=== PATIENT | male | born 1935 | race Caucasian/White ===

== ENCOUNTER 2018-01-01 00:45 | Emergency (ER) | payer MEDICARE, SELFPAY ==
[2018-01-01 00:46] VITALS: BP 135/70; PULSE 86; RESP 20; TEMP 36.6; O2SAT 95; BMI 34.9
--- NOTE | 2018-01-01 00:52 | XR_ITS ---
XR pelvis 1-2V HISTORY: Fall with injury and pain ITS.REASON: FALL ORDERING PHYSICIAN: Jatinder Chance MD PATIENT AGE: 82 years COMPARISON: None FINDINGS: No obvious fracture or dislocation. Mild osteoarthritic changes of the hips. Scattered clips are present in the pelvis and there is diffuse vascular calcification. IMPRESSION: Osteoarthritis of the hips, no acute finding
--- NOTE | 2018-01-01 00:52 | CT_ITS ---
CT head/brain wo con HISTORY: Headache, pain, contusion with swelling and laceration on back of head following injury/fall ITS.REASON: FALL ORDERING PHYSICIAN: Jatinder Chance MD PATIENT AGE: 82 years COMPARISON: None TECHNIQUE: Axial images obtained without contrast. Brain and bone windows reviewed. All CT scans at the facility use one or more dose reduction, viz: automated exposure control; ma/kV adjustment per patient size (including targeted exams where dose is matched to indication; i.e. head); or iterative reconstruction technique. FINDINGS: There is moderate generalized atrophy with periventricular microangiopathic changes. No midline shift, mass effect, intracranial hemorrhage apparent. The ventricles are somewhat prominent in keeping with patient's volume loss of the brain. There is a defect involving the right parietal bone consistent with an old radha hole and also 1 in the right parietofrontal junction Moderate opacification noted involving the ethmoid sinuses left greater than right with mild mucosal thickening of the sphenoid sinus. No acute calvarial fracture. IMPRESSION: 1. No acute intracranial finding 2. Atrophy with chronic ischemic gliotic change 3. 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
--- NOTE | 2018-01-01 00:52 | XR_ITS ---
XR chest AP HISTORY: Posttraumatic pain ITS.REASON: FALL ORDERING PHYSICIAN: Jatinder Chance MD PATIENT AGE: 82 years COMPARISON: 06/22/2013 FINDINGS: Unremarkable cardiovascular structures. There is chronic coarsening of the bronchovascular markings with scattered areas of scarring. No evidence of pneumothorax, contusion, or lobar consolidation. There is some faint nodular opacity in right upper lobe laterally which in part may be related to fibrotic changes. Cannot exclude developing nodule. No acute bony anomalies. IMPRESSION: Chronic changes, with possible developing nodule versus progressive fibrotic change in the right upper lobe. No acute finding.
--- NOTE | 2018-01-01 02:00 | PC.NURSE ---
MD AT BEDSIDE TO STAPLE HEAD LACERATION.
--- NOTE | 2018-01-01 03:23 | PC.NURSE ---
REPORT TO UBALDO, RECEIVING RN AT [facility].
[2018-01-01 04:32] VITALS: BP 134/67; PULSE 70; RESP 20; TEMP 37.1; O2SAT 98
== END 2018-01-01 03:25 ==
PROVIDERS: Emergency Provider Emergency Medicine; Family Provider Family Medicine
DX: S01.01XA Laceration without foreign body of scalp, initial encounter (principal); I10 Essential (primary) hypertension; F41.8 Other specified anxiety disorders; F02.80 Dementia in other diseases classified elsewhere, unspecified severity, without behavioral disturbance, psychotic disturbance, mood disturbance, and anxiety; W01.0XXA Fall on same level from slipping, tripping and stumbling without subsequent striking against object, initial encounter; Y92.129 Unspecified place in nursing home as the place of occurrence of the external cause
CPT/HCPCS: 12001; 70450; 71045; 72170; 96372; 99281

== ENCOUNTER → 2018-03-22 13:29 | Outpatient (REF) | payer MEDICARE, SELFPAY ==
[2018-03-22 13:32] LABS: Microscopic, Urine URINE MICROSCOPIC (MICROSCOPIC)
[2018-03-22 14:15] LABS: Appearance,Urine TURBID (Clear); Bilirubin,Urine Negative (Negative); Blood, Urine Negative (Negative); Color,Urine YELLOW (Yellow); Glucose,Urine (UA) Negative (Negative); Ketones,Urine Negative (Negative); Leukocyte Esterase,Urine Negative (Negative); Nitrate,Urine Negative (Negative); Protein,Urine TRACE (Negative); Urobilinogen,Urine 0.2 EU/dl (0.2)
[2018-03-22 14:19] LABS: Bacteria,Urine 4+ /lpf; WBC,Urine Occasional #/hpf (0-3)
[2018-03-22 14:20] LABS: Squamous Epithelial Cell,Urine Occasional #/hpf (0-5)
== END ==
LOC: LAB 13:29
PROVIDERS: Visit Provider Internal Medicine Adolescent Medicine
DX: E11.9 Type 2 diabetes mellitus without complications (principal); E55.9 Vitamin D deficiency, unspecified; I25.10 Atherosclerotic heart disease of native coronary artery without angina pectoris; I10 Essential (primary) hypertension; R82.90 Unspecified abnormal findings in urine
CPT/HCPCS: 81001; 87086; 87088; 87186

== ENCOUNTER 2018-11-05 09:00 | Outpatient (RCR) | payer MEDICARE, MEDICAID, SELFPAY ==
--- NOTE | 2018-09-08 14:43 | HMH.PTOPWND ---
Rehab Outpt Wound Evaluation Rehab OP Wound Evaluation Start: 09/08/18 14:20 Freq: Status: Active Protocol: Document 09/08/18 14:20 [email or web address] (Rec: 09/08/18 14:43 [email or web address] [id number]) Electronically Signed By Luis Carlos Nava, PT 09/08/18 14:20 Subjective/History History History This is the initial OP PT wound clinic evaluation for Vishal Jolley. Pt is an 83 y/ o male living [place] [facility] [place] to wound clinic for non-healing wounds on LLE. 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 PROTOZOOLOGIST reports pt fell and suffered from compound fracture on Lower leg bones. Wound has been there since his bones were sewt and had cast removed. Subjective Subjective pt does report some c/o pain and TTP Wound Eval Wound Left Foot Wound Type Diabetic Foot Ulcer Wound Length (cm) 0.5 Wound Width (cm) 0.5 Wound Depth (cm) 0.5 Wound Bed Appearance Dusky Red Percentage Granulated (%) 100 Wound Margins Description Roll Under Edges Drainage Amount None Drainage Odor No Odor Primary Dressing Silver Dressing Wound Secondary Dressing Type Unna Boot Wound Debridement Method Sharps Forceps Wound Debridement Amount of Tissue Minimal Removed Dressing Change Date 09/08/18 Left Lower Posterior Calf Is This a Chronic Wound Yes Wound Length (cm) 1.0 Wound Width (cm) 5.0 Wound Bed Appearance Dusky Red Slough Eschar Peeling Skin Edematous Percentage Granulated (%) 0 Percentage of Slough (%) 100 Percentage of Eschar (Black) (%) 50 Percentage of Eschar (Yellow) (%) 50 Wound Margins Description Macerated Surrounding Tissue Appearance [place] Edema Type Pitting Edema Degree 2+ Query Text:1+ Trace, Barely Detectable, Rebound 15-30 seconds 2+ Moderate, Slight Indentation, Rebound 10-20 seconds 3+ Deep, Deeper Indentation, Rebound > 30 seconds 4+
== END 2018-11-05 09:05 | disposition home or self-care (01) ==
LOC: PT 09:00
PROVIDERS: Visit Provider Nurse Practitioner Family
DX: L97.321 Non-pressure chronic ulcer of left ankle limited to breakdown of skin (principal)
CPT/HCPCS: 29580; 97163; 97164; 97597; 97598; 97760

== ENCOUNTER → 2019-01-03 17:04 | Outpatient (CLI) | payer MEDICARE, MEDICAID, SELFPAY | PROVIDERS: Visit Provider Internal Medicine Adolescent Medicine | DX: S91.002A Unspecified open wound, left ankle, initial encounter (principal) | CPT/HCPCS: 87070; 87077; 87186; 87205 ==

== ENCOUNTER → 2019-01-22 10:20 | Outpatient (CLI) | payer MEDICARE, MEDICAID, SELFPAY ==
--- NOTE | 2019-01-22 10:33 | XR_ITS ---
XR foot wt bearing RT 3V HISTORY: ITS.REASON: ulcer ORDERING PHYSICIAN: Melina Richmond DPM PATIENT AGE: 83 years COMPARISON: None FINDINGS: No fracture or dislocation. No lytic or blastic change. There is diffuse osteopenia. There are mild degenerative changes at the first metatarsophalangeal joint and there is fusion of the interphalangeal joint of the first toe with well-circumscribed calcific density at the medial aspect of the great toe. Paravertebral deformity is present at digits 2 through 4. No lytic process evident. Hypertrophic changes are present involving the anterior distal talus. IMPRESSION: No acute finding, hammertoe deformity
--- NOTE | 2019-01-22 10:33 | XR_ITS ---
XR foot wt bearing LT 3V HISTORY: Pain, ulceration ITS.REASON: ulcer ORDERING PHYSICIAN: Melina Richmond DPM PATIENT AGE: 83 years COMPARISON: None FINDINGS: There is diffuse osteopenia with mild degenerative changes of the midfoot. There is an intramedullary jeff in the distal tibia extending through the talus into the anterior aspect of the calcaneus and exiting along the inferior margin of the calcaneus distally. There is no distal fibular fracture. A longitudinal screws present within the medial malleoli region. Longitudinal screw is present within the calcaneus extending into the talus. This screw is fractured and talocalcaneal junction. There is an old posterior distal tibial fracture. There is a mildly prominent zone of lucency both medial and lateral to the intramedullary jeff at the distal tibia, talus and calcaneus. Cannot exclude the possibility of prosthesis loosening or infection. Correlation with old studies needed and are not available at this institution. There is a transverse screw through the distal aspect of the intramedullary jeff within the calcaneus with a mildly prominent zone of lucency around the screw. Correlation with old films needed IMPRESSION: 1. Old distal tib-fib fracture with Prior ORIF with possible loosening of the intramedullary jeff of the distal tibia talus and calcaneus. Old films are needed for comparison. 2. There is fracture of a screw which extends from the posterior calcaneus to the neck of the talus. The screw fracture is at the subtalar joint with mild separation of the screw fragments. 3. Mildly prominent zone of lucency around the distal screw at the calcaneus
--- NOTE | 2019-01-22 10:33 | XR_ITS ---
XR ankle wt bearing RT min 3V HISTORY: ITS.REASON: ulcer ORDERING PHYSICIAN: Melina Richmond DPM PATIENT AGE: 83 years Comparison: None FINDINGS: No fracture or dislocation. No lytic or blastic change. There is normal mineralization.. The joint spaces are well-preserved. No significant degenerative/arthritic changes. No erosive changes evident. Mild bony hypertrophy involves the anterior distal tibia IMPRESSION: No acute finding
--- NOTE | 2019-01-22 10:33 | XR_ITS ---
XR ankle wt bearing LT min 3V HISTORY: Pain, ulcer ITS.REASON: ulcer ORDERING PHYSICIAN: Melina Richmond DPM PATIENT AGE: 83 years Comparison: None FINDINGS: There is an intramedullary jeff in the distal tibia extending through the talus into the anterior aspect of the calcaneus and exiting along the inferior margin of the calcaneus distally. There is no distal fibular fracture. A longitudinal screws present within the medial malleoli region. Longitudinal screw is present within the calcaneus extending into the talus. This screw is fractured and talocalcaneal junction. There is an old posterior distal tibial fracture. There is a mildly prominent zone of lucency both medial and lateral to the intramedullary jeff at the distal tibia, talus and calcaneus. Cannot exclude the possibility of prosthesis loosening or infection. Correlation with old studies needed and are not available at this institution. IMPRESSION: 1. Old distal tib-fib fracture with Prior ORIF with possible loosening of the intramedullary jeff of the distal tibia talus and calcaneus. Old films are needed for comparison. 2. There is fracture of a screw which extends from the posterior calcaneus to the neck of the talus. The screw fracture is at the subtalar joint with mild separation of the screw fragments.
[2019-01-22 11:37] LABS: Basophils # 0.1 K/mm3 (0-0.2); Basophils % 0.8 % (0.1-2.0); Eosinophils # 0.8 K/mm3 (0.0-0.4); Eosinophils % 5.9 % (0.1-12.0); Hematocrit 35.8 % (42.0-52.0); Lymphocytes # 1.6 K/mm3 (0.7-4.5); Lymphocytes % 12.3 % (10-50); Mean Corpuscular HGB Conc 33.5 g/dL (31.8-35.4); Mean Corpuscular Hemoglobin 30.6 pg (27.0-31.2); Mean Corpuscular Volume 91.5 fl (80-94); Mean Platelet Volume 7.7 fl (7.4-10.4); Monocytes # 0.9 K/mm3 (0.1-1.0); Monocytes % 7.4 % (1.7-9.3); Neutrophils # 9.4 K/mm3 (1.8-7.8); Neutrophils % 73.7 % (37.0-80.0); Platelet Count 353 K/mm3 (142-424); Red Blood Count 3.92 M/mm3 (4.60-6.20); Red Cell Distribution Width 13.5 % (11.5-17.5); White Blood Count 12.7 K/mm3 (4.8-10.8)
[2019-01-22 12:51] LABS: Erythrocyte Sedimentation Rate 93 mm/hr (0-20)
[2019-01-22 15:24] LABS: Hemoglobin A1C 8.5 % (0.0-7.0)
[2019-01-22 16:09] LABS: Alanine Aminotransferase 16 U/L (12-78); Albumin Level 3.1 gm/dL (3.4-5.0); Albumin/Globulin Ratio 0.6 (1.1-1.8); Alkaline Phosphatase 103 U/L (46-116); Anion Gap 16.1 mEq/L (5-15); Aspartate Amino Transferase 12 U/L (15-37); Bilirubin,Total 0.4 mg/dL (0.2-1.0); Blood Urea Nitrogen 23 mg/dL (7-18); C-Reactive Protein 9.2 mg/L (0.0-0.9); Carbon Dioxide 26 mmol/L (21.0-32.0); Chloride 101 mmol/L (98-107); Creatinine,Serum 1.83 mg/dL (0.70-1.30); Estimated Glomerular Filt Rate 36 ml/min (>60); GFR (African American) 43 ML/MIN (>60); Globulin 5.3 gm/dl (1.3-3.2); Glucose 185 mg/dL (74-106); Potassium 4.1 mmoL/L (3.5-5.1); Sodium 139 mmol/L (136-145); Total Protein,Serum 8.4 gm/dL (6.4-8.2)
== END ==
PROVIDERS: PCP Internal Medicine Adolescent Medicine; Visit Provider Podiatrist
DX: Z51.89 Encounter for other specified aftercare (principal); E11.622 Type 2 diabetes mellitus with other skin ulcer; L03.116 Cellulitis of left lower limb; L97.523 Non-pressure chronic ulcer of other part of left foot with necrosis of muscle; L97.312 Non-pressure chronic ulcer of right ankle with fat layer exposed
CPT/HCPCS: 36415; 73610; 73630; 80053; 83036; 85025; 85651; 86140

== ENCOUNTER → 2019-01-28 08:08 | Outpatient (CLI) | payer MEDICARE, MEDICAID, SELFPAY ==
--- NOTE | 2019-01-28 08:10 | US_ITS ---
US Arterial Ankle Brachial Ind History: ITS.REASON: skin changes, open wounds lower extremities with discoloration, rest pain ORDERING PHYSICIAN: Melina Richmond DPM PATIENT AGE: 83 years TECHNIQUE: Segmental pressures obtained of both right and left leg. These are compared to brachial blood pressure to yield index at each level sampled including summary BETH. The data sheets from the procedure are available in PACS FINDINGS. Exam is technically difficult to perform secondary to patient's inability to cooperate according to the technologist. Rest study only performed today No prior studies available for comparison. Blood pressures reported are in millimeters mercury. RIGHT LEG BETH = 1.4. RIGHT LEG TBI=.7 Brachial BP: 150 Thigh BP: 141 Calf BP: 120 Ankle PT: 212 Ankle DP : 172 Digit =98 LEFT LEG BETH = 1.2 LEFT LEG TBI= .5 Brachial BPD: 150 Thigh BP: 143 Calf BP: 135 Ankle PT:186 Ankle DP: 184 Digit = 79 Pulses and waveforms: Diminished pulses with unremarkable waveforms. IMPRESSION: The right BETH is slightly high suggesting hardening of the arteries seen with diabetes. The left TBI is at the lower limits of normal suggesting small vessel disease.
== END ==
PROVIDERS: PCP Internal Medicine Adolescent Medicine; Visit Provider Podiatrist
DX: I73.9 Peripheral vascular disease, unspecified (principal)
CPT/HCPCS: 93922

== ENCOUNTER → 2019-02-02 18:39 | Outpatient (CLI) | payer MEDICARE, MEDICAID, SELFPAY | PROVIDERS: Visit Provider Podiatrist | DX: L97.523 Non-pressure chronic ulcer of other part of left foot with necrosis of muscle (principal) | CPT/HCPCS: 87070; 87077; 87186; 87205 ==

== ENCOUNTER 2019-02-05 10:00 | Outpatient (RCR) | payer MEDICARE, MEDICAID, SELFPAY ==
--- NOTE | 2019-01-28 11:27 | HMH.PTOPWND ---
Rehab Outpt Wound Evaluation Rehab OP Wound Evaluation Start: 01/28/19 10:21 Freq: Status: Active Protocol: Document 01/28/19 10:23 [email or web address] (Rec: 01/28/19 11:27 [email or web address] [id number]) Electronically Signed By Luis Carlos Nava, GRIS 01/28/19 10:23 Subjective/History History History This is the initial Physical Therapy wound clinic evaluation for Vishal Jolley. Pt is an 83 y/o reisdent of [facility] home. Pt had been seen in wound clinic before had had closure and healing of BLE wounds. Pt now reprots w/ new wounds in multiple locations on BLE. 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 appearred a few weeks ago Subjective Subjective Pt has severe dementia and schizophrenic disorder so is an unable historian - Note LLJennifer mandujano has 8 wounds all 1.0x1.0 w/ same description - wounds will be noted in one section below Wound Eval Wound Left Lower Posterior [place]uj[place] Wound Type Stasis Ulcer Wound Length (cm) 1.0 Wound Width (cm) 1.0 Wound Topical Solution/Irrigant Dakins Irrigant Primary Dressing Silver Dressing Comment tegederm AG mesh Wound Secondary Dressing Type Unna Boot Wound Debridement Amount of Tissue None Removed Dressing Change Date 01/28/19 Dressing Change Patient Tolerance Tolerated Poorly Left Lower Mandujano Wound Type Stasis Ulcer Is This a Chronic Wound Yes Wound Length (cm) 1.0 Wound Width (cm) 1.0 Wound Bed Appearance Dusky Red,Yellow Percentage Granulated (%) 0 Percentage of Eschar (Yellow) (%) 100 Wound Margins Description Well Defined Surrounding Tissue Appearance Edematous Surrounding Tissue Temperature Cool Drainage Description Serous Drainage Amount Moderate Drainage Odor No Odor Dressing Status Soiled Wound Topical Solution/Irrigant Dakins Irrigant Primary Dressing Silver Dressing Comment tegederm AG mesh Wound Secondary Dressing Type Unna Boot Dressing Change Date 01/28/19 Dressing Change Patient Tolerance Tolerated Poorly Left Lower Dorsal Foot Wound Type
== END 2019-02-05 10:05 | disposition home or self-care (01) ==
LOC: PT 10:00
PROVIDERS: Visit Provider Podiatrist
DX: L97.329 Non-pressure chronic ulcer of left ankle with unspecified severity (principal); L97.523 Non-pressure chronic ulcer of other part of left foot with necrosis of muscle
CPT/HCPCS: 29580; 97161; 97597; 97598